=== PATIENT | female | born 1945 | race Caucasian/White ===

== ENCOUNTER 2017-02-13 18:06 | Observation (INO) | payer BC ==
[~2017-02-13] VITALS: Ht 160 cm; Wt 63.9 kg
--- OUTSIDE RECORDS SUMMARY | 2017-02-13 18:14 | XMS REPORT | Continuity of Care Document ---
Author Author [facility] Address Unknown Phone Unavailable Allergies Active Description Code Type Severity Reaction Onset Reported/Identified Relationship to Patient Clinical Status Yes pseudoephedrine [id number] Drug Allergy Unknown N/A 05/28/2014 Medications Problems Date Dx Coded Attending Type Code Diagnosis Diagnosed By 05/29/2014 HENOK CHOW MD Ot 211.3 BENIGN NEOPLASM LG BOWEL 05/29/2014 HENOK CHOW MD Ot 211.4 BENIGN NEOPL RECTUM/ANUS 05/29/2014 HENOK CHOW MD Ot 272.4 HYPERLIPIDEMIA NEC/NOS 05/29/2014 HENOK CHOW MD Ot V16.0 FAMILY HX-GI MALIGNANCY 05/29/2014 HENOK CHOW MD Ot V16.3 FAMILY HX-BREAST MALIG 05/29/2014 HENOK CHOW MD Ot V76.51 SCREEN MAL NEOP-COLON 04/01/2015 ANNA SZYMANSKI MD Ot 733.90 04/01/2015 ANNA SZYMANSKI MD Ot V16.3 04/01/2015 ANNA SZYMANSKI MD Ot V49.81 04/01/2015 ANNA SZYMANSKI MD Ot V76.12 04/05/2015 ANNA SZYMANSKI MD Ot 272.1 04/05/2015 ANNA SZYMANSKI MD Ot 272.4 04/05/2015 ANNA SZYMANSKI MD Ot 477.9 04/05/2015 ANNA SZYMANSKI MD Ot V70.0 04/15/2015 ANNA SZYMANSKI MD Ot 733.90 04/15/2015 ANNA SZYMANSKI MD Ot V16.3 04/15/2015 ANNA SZYMANSKI MD Ot V49.81 04/15/2015 ANNA SZYMANSKI MD Ot V76.12 07/14/2015 ANNA SZYMANSKI MD Ot 599.0 07/21/2015 ANNA SZYMANSKI MD Ot 599.0 04/20/2016 ANNA SZYMANSKI MD Ot E78.5 HYPERLIPIDEMIA, UNSPECIFIED 04/20/2016 ANNA SZYMANSKI MD Ot G25.81 RESTLESS LEGS SYNDROME 04/20/2016 ANNA SZYMANSKI MD Ot J30.9 ALLERGIC RHINITIS, UNSPECIFIED 04/20/2016 ANNA SZYMANSKI MD Ot Z00.00 ENCNTR FOR GENERAL ADULT MEDICAL EXAM W 04/20/2016 ANNA SZYMANSKI MD Ot Z13.6 ENCOUNTER FOR SCREENING FOR CARDIOVASCUL 04/22/2016 ANNA SZYMANSKI MD Ot E78.5 HYPERLIPIDEMIA, UNSPECIFIED 04/22/2016 ANNA SZYMANSKI MD Ot G25.81 RESTLESS LEGS SYNDROME 04/22/2016 ANNA SZYMANSKI MD Ot J30.9 ALLERGIC RHINITIS, UNSPECIFIED 04/22/2016 ANNA SZYMANSKI MD Ot Z00.00 ENCNTR FOR GENERAL ADULT MEDICAL EXAM W 04/22/2016 ANNA SZYMANSKI MD Ot Z13.6 ENCOUNTER FOR SCREENING FOR CARDIOVASCUL 05/16/2016 ANNA SZYMANSKI MD Ot E78.5 HYPERLIPIDEMIA, UNSPECIFIED 05/16/2016 ANNA SZYMANSKI MD Ot G25.81 RESTLESS LEGS SYNDROME 05/16/2016 ANNA SZYMANSKI MD Ot J30.9 ALLERGIC RHINITIS, UNSPECIFIED 05/16/2016 ANNA SZYMANSKI MD Ot Z00.00 ENCNTR FOR GENERAL ADULT MEDICAL EXAM W 05/16/2016 ANNA SZYMANSKI MD Ot Z13.6 ENCOUNTER FOR SCREENING FOR CARDIOVASCUL 10/04/2016 Joleen Burns SR[employer] Ot N30.00 ACUTE CYSTITIS WITHOUT HEMATURIA 10/11/2016 Joleen Burns SR[employer]NER Ot N30.00 ACUTE CYSTITIS WITHOUT HEMATURIA 11/02/2016 Joleen Burns SR[employer] Ot N30.00 ACUTE CYSTITIS WITHOUT HEMATURIA 11/02/2016 Ot 272.4 HYPERLIPIDEMIA NEC/NOS 11/02/2016 Ot 427.9 CARDIAC DYSRHYTHMIA NOS 11/02/2016 Ot 562.10 DIVERTICULOSIS COLON (W/O MENT OF HEMORR 11/02/2016 Ot 733.90 BONE CARTILAGE DIS NOS 11/02/2016 Ot V76.12 OTH SCREEN MAMMO-MALIGN NEOPLASM OF CHARMAINE 11/02/2016 YazRobin hernández Ot 722.4 CERVICAL DISC DEGEN 11/02/2016 ANNA SZYMANSKI MD Ot 272.1 PURE HYPERGLYCERIDEMIA 11/02/2016 ANNA SZYMANSKI MD Ot 272.4 HYPERLIPIDEMIA NEC/NOS 11/02/2016 ANNA SZYMANSKI MD Ot 477.9 ALLERGIC RHINITIS NOS 11/02/2016 ANNA SZYMANSKI MD Ot V70.0 ROUTINE MEDICAL EXAM 11/02/2016 ANNA SZYMANSKI MD Ot 733.90 BONE CARTILAGE DIS NOS 11/02/2016 ANNA SZYMANSKI MD Ot V16.3 FAMILY HX-BREAST MALIG 11/02/2016 ANNA SZYMANSKI MD Ot V49.81 ASYMPT POSTMENOPAUSAL STATUS (AGE- RELATE 11/02/2016 ANNA SZYMANSKI MD Ot V76.12 OTH SCREEN MAMMO-MALIGN NEOPLASM OF CHARMAINE 11/02/2016 ANNA SZYMANSKI MD Ot 599.0 URIN TRACT INFECTION NOS 11/02/2016 ANNA SZYMANSKI MD Ot E78.5 HYPERLIPIDEMIA, UNSPECIFIED 11/02/2016 ANNA SZYMANSKI MD Ot G25.81 RESTLESS LEGS SYNDROME 11/02/2016 ANNA SZYMANSKI MD Ot J30.9 ALLERGIC RHINITIS, UNSPECIFIED 11/02/2016 ANNA SZYMANSKI MD Ot Z00.00 ENCNTR FOR GENERAL ADULT MEDICAL EXAM W / 11/02/2016 ANNA SZYMANSKI MD Ot Z13.6 ENCOUNTER FOR SCREENING FOR CARDIOVASCUL 11/02/2016 Joleen Burns APRN Ot N30.00 ACUTE CYSTITIS WITHOUT HEMATURIA Procedures Code Description Performed By Performed On 45.42 ENDOSC POLYPECTOMY OF LG INTEST 05/29/2014 48.36 ENDO RECTUM POLYPECTOMY 05/29/2014 Results Encounters ACCT No. Visit Date/Time Discharge Status Pt. Type Provider Facility Loc./Unit Complaint [id number] 06/28/2015 11:13:00 2014 23:59:59 CLS Outpatient ANNA SZYMNASKI MD [facility] LAB LAB DROP OFF FROM CLAS OFFICE [id number] 03/30/2015 08:11:00 2014 23:59:59 CLS Outpatient NESSA HAMILTON, [facility] RAD SCREENING V7612,V49.81 POST MENOPAUSAL [id number] 03/22/2015 08:51:00 2014 23:59:59 CLS Outpatient NESSA HAMILTON, [facility] LAB [id number] 07/05/2014 19:09:00 2013 23:59:59 CLS Outpatient Robin Mukherjee [facility] RAD [id number] 05/29/2014 08:26:00 2013 12:20:00 DIS Outpatient GERALDO HAMILTON, [facility] ASC COLONOSCOPY [id number] 02/13/2017 18:07:00 ACT Inpatient JUNI JASMINE [facility] MED/SURG ABD PAIN [id number] 09/30/2016 10:29:00 ACT Outpatient Joleen Burns APRN [facility] [id number] 04/05/2016 08:21:00 ACT Outpatient NESSA HAMILTON, [facility] LAB [id number] 12/25/2012 14:20:00 Document Registration [id number] 12/05/2012 08:37:00 Document Registration
--- OUTSIDE RECORDS SUMMARY | 2017-02-13 18:15 | XMS REPORT ---
Author Author Abdoul Ruiz S Organization Unknown Address [address] [place] [phone] Phone Care Team Providers Care Ec Teacher Name Role Phone Sara Chelsea PP Unavailable Reason for Referral No Reason for Referral was given. History of Present Illness No HPI available. Problems Normal Routine History And Physical Senior Citizen (65-80) (V70.0); ( Active) Folliculitis (704.8); (Active) Lentigo (709.09); ( Active) Seborrheic Keratosis (702.19); (Active) Medication Clobetasol Propionate 0.05 % External Solution; APPLY TO SCALP AT BEDTIME AND WASH OUT IN MORNING FOR ONE WEEK AND THEN ONCE A WEEK THEREAFTER; Start Date: ; End Date: (Active) Allergies and Adverse Reactions No Known Drug Allergies (Active) Past Medical History No Significant Medical History Social History Unknown If Ever Smoked (Active) Advance Directives No Advance Directives available. Encounters Appointment 03/12/2013
[2017-02-13 18:28] VITALS: BP 143/60
[2017-02-13] MEDS ORDERED: MAGNESIUM HYDROXIDE 80MG/ML (MILK OF MAGNESIA) 30 ML UDC PO PRN (18:50)
[2017-02-13] MEDS ORDERED: CALCIUM CARBONATE CHEWABLE 300 MG (TUMS) TABLET PO PRN (18:50)
[2017-02-13] MEDS ORDERED: SENNOSIDES/DOCUSATE 8.6MG/50MG (SENOKOT S) TABLET PO PRN (18:50)
[2017-02-13] MEDS ORDERED: morphine INJ 4 MG/ML 1 ML SYRINGE IV PRN (18:50)
[2017-02-13] MEDS ORDERED: ONDANSETRON 2 MG/ML (Z0FRAN) 2 ML VIAL IV PRN (18:50)
--- NOTE | 2017-02-13 19:12 | History and Physical (E) ---
History & Physical Admission Details Admit Date/Time February 13, 2017 at 18:07 Primary Care Provider Nii Pan MD Subjective CC indigestion and variable fleeting abdominal pain . History of Present Illness 71 yo presents with abdominal discomfort that began followin a fatty meal at the [employer] last p.m. but she admits to similar discomfort assoc. with food for the past two plus months. The pain is about LLQ and RUQand once to jaw on the right side. She tried some antacid last noc but no help. she has history of diverticular dx but says she eats as advised avoiding seed foods. PMH past medical history non contributory. PSH DONNA/BSO for benign disease. FH mother colon cancer. works as sec. denies drinking alcohol or use of tobacco. Allergies: Coded Allergies: pseudoephedrine (Unverified Allergy, Unknown, 05/28/14) Review of Systems CONSTITUTION: HEENT: No change in vision or hearing. No sores in mouth, sore throat. CV: No chest pain, palpitations. PULM: No cough, shortness of breath, difficulty breathing. GI: No nausea, vomiting, constipation, or diarrhea. No blood in stool. : No dysuria. No blood in urine. MS: No new muscle or joint aches and pains. NEURO: No numbness or tingling. No weakness. Lightheadedness per the HPI. INTEG: No rashes, lesions, or sores. ENDO: No heat or cold intolerance. No polydipsia or polyuria. HEME/LYMPH: No easy bruising or bleeding. No swollen glands. PSYCH: No change in mood or behavior. Objective Vital Signs Date Time Temp Pulse Resp B/P Pulse Ox O2 Delivery O2 Flow Rate FiO2 02/13/17 18:28 97.9 86 20 91 Room air Physical Exam Physical Exam General--Awake and alert. No distress. HEENT--Normocephalic. MMM in oral cavity. Lungs--Clear to auscultation bilaterally. Nonlabored respirations. Heart--RRR. No murmurs. Abdomen--Normal bowel sounds. Soft. Nondistended. tender over RUQ and percussion over right renal area. Extremities--No edema. pending labs. Imaging u/s ordered for a.m. as patient is stable . Assessment/Plan abdominal pain in 71 y/o mildly obese female with cc. of "gas" discomfort and pain of 5-7 intensity full labs and amylase and lipase ordered and esr and npo with sips of water only and ms for pain . currently stable. too follow. FLUIDS iv fluids n/s thru noc. ELECTROLYTES pending Diet- npo sips of water Code Status-full DVT prophylaxis-scd Disposition-observation. End of Report . LAVINIA ALFREDO DO February 13, 2017 19:12
[2017-02-13] MEDS ORDERED: SODIUM CHLORIDE FLUSH 10 ML ONE (19:29)
--- NOTE | 2017-02-13 19:57 | NUR ---
Patient resting in bed with sister present at bedside. 20g IV started to Left forearm on first attempt, patient tolerates well. NS@75mL/hr started per order. Reports pain tolerable at this time; educated on PRN medications available for symptom management. Orders for lab and radiology in AM explained to patient, patient in agreement with plan. No needs at this time. Will continue to monitor.
[2017-02-13] MEDS ORDERED: TEMAZEPAM 15 MG (RESTORIL) CAP PO SCH (21:00)
[2017-02-14 00:08] VITALS: BP 164/86
--- NOTE | 2017-02-14 06:36 | NUR ---
Patient has reported no pain this shift. States that she slept well after administration of the Restoril. IV infusing without difficulties. Patient reports "mild headache" this AM and encouraged to tell staff if it gets worse or if she would like Tylenol for this. No needs at this time.
[2017-02-14 06:56] LABS: BASOPHILS % (AUTO) 1 % (0-2); EOSINOPHILS # (AUTO) 0.2 10^3uL; EOSINOPHILS % (AUTO) 5 % (0-4); LYMPHOCYTES # (AUTO) 1.6 X10^3; MEAN CORPUSCULAR HEMOGLOBIN 29.8 PG (26.0-34.0); MEAN CORPUSCULAR HGB CONC 33.4 g/dL (31.0-37.0); MEAN CORPUSCULAR VOLUME 89 FL (80-100); MEAN PLATELET VOLUME 9.7 FL (6.0-9.5); MONOCYTES # (AUTO) 0.4 X10^3; MONOCYTES % (AUTO) 10 % (3-11); NEUTROPHILS # (AUTO) 1.9 X10^3; NEUTROPHILS % (AUTO) 46 % (51-67); PLATELET COUNT 175 10^3uL (150-450); WHITE BLOOD COUNT 4.16 10^3uL (4.0-11.0)
[2017-02-14 07:07] LABS: ALBUMIN 3.5 g/dL (3.4-5.0); ALKALINE PHOSPHATASE 54 U/L (38-126); AMYLASE* 81 U/L (25-115); ANION GAP 9.4 MEQ/L (3-15); BUN/CREATININE RATIO 19 (10-20); CALCULATED IONIZED CALCIUM 4.2 mg/dL (3.8-4.6); LIPASE* 76 U/L (23-300); TOTAL PROTEIN 6.4 g/dL (6.4-8.5)
[2017-02-14 07:33] VITALS: BP 127/69
--- NOTE | 2017-02-14 07:34 | Diagnostic Imaging Report ---
INDICATION: Chest and abdominal pain. FINDINGS: Frontal and lateral views of the chest demonstrate surgical clips along the left anterior lateral chest wall. Lungs are clear. Heart, mediastinum, pulmonary vascularity are normal. IMPRESSION: Negative chest. Dictated by: Dictated on workstation # [id number]
--- NOTE | 2017-02-14 09:25 | Diagnostic Imaging Report ---
PROCEDURE: US abdomen complete. TECHNIQUE: Multiple real-time grayscale images were obtained over the abdomen in various projections. INDICATION: Right upper quadrant pain and postprandial pain. COMPARISON: None available. FINDINGS: The liver is normal in size. It demonstrates mild diffuse increased echogenicity, suggestive of mild hepatic steatosis. No focal hepatic lesion. The main portal vein is patent with antegrade flow. The gallbladder is distended without gallstones, pericholecystic fluid, or gallbladder wall thickening. The common bile duct is borderline dilated measuring 0.6 cm. There is a focal ovoid echogenic focus in the proximal common bile duct measuring approximately 6 mm which could represent an intraductal stone. The visualized portions of the pancreas are normal. Portions of the head and tail are obscured by overlying bowel gas. The kidneys are normal in size, each measuring approximately 10 cm. No hydronephrosis or suspicious mass lesion of either kidney. The aorta and IVC are normal in caliber where visualized. No ascites in the visualized abdomen. IMPRESSION: 1. Borderline dilation of the common bile duct measuring 6 mm. An echogenic 6 mm focus within the proximal common bile duct may represent choledocholithiasis. No intrahepatic biliary duct dilatation to indicate a high-grade obstructing stone. 2. No gallstones or findings to suggest acute cholecystitis. 3. Mild diffuse hepatic steatosis. Dictated by: Dictated on workstation # [id number]
[2017-02-14] MEDS ORDERED: ACETAMINOPHEN 325 MG TAB (TYLENOL) PO PRN (09:30)
[2017-02-14] MEDS ORDERED: ACETAMINOPHEN 325 MG TAB (TYLENOL) ONE (09:30)
--- NOTE | 2017-02-14 09:32 | Progress Note (E) ---
Progress Note S: Awake and alert No abdominal pain, no fevers or vomiting, mild ORONA this am from not eating Abdominal US being done now- prelim suggests possible CBD O: Vital Signs Date Time Temp Pulse Resp B/P Pulse Ox O2 Delivery O2 Flow Rate FiO2 02/14/17 07:33 97.9 74 18 127/69 100 Room air I & O Past 24 hrs 02/14/17 07:00 Intake Total 677 ml Output Total 1200 ml Balance -523 ml Intake IV Total 677 ml Output Urine Total 1200 ml Current Medications Sodium Chloride 1,000 ml @ 75 mls/hr [id number] IV Last administered on 02/14/17 08:50; Admin Dose 75 MLS/HR; Start 02/13/17 at 18:48 Morphine Sulfate 1 mg PRN PRN IV; Start 02/13/17 at 18:50 Calcium Carbonate 300 mg Q8H PRN PO; Start 02/13/17 at 18:50 Ondansetron HCl 4 mg Q6H PRN IV; Start 02/13/17 at 18:50 Magnesium Hydroxide 30 ml DAILY PRN PO; Start 02/13/17 at 18:50 Temazepam 15 mg HS PO Last administered on 02/13/17 21:35 EXAM: Alert and oriented x 3 HEENT- PERRLA EOMI Neck supple Lungs clear bilaterally CV: S1S2 Abdomen soft mildly tender with deep palpation Ext: No cyanosis Neuro: No focal neuro deficits Ultrasound- CBD measures 0.6mm No obstruction seen Laboratory Results Past 48 Hrs 02/14/17 00:57: Troponin I < 0.012 02/14/17 06:35: Troponin I < 0.012, Alanine Aminotransferase (ALT/SGPT) 21L, Albumin 3.5, Albumin/Globulin Ratio 1.206, Alkaline Phosphatase 54, Amylase Level 81, Anion Gap 9.4, Aspartate Amino Transf (AST/SGOT) 20, BUN/Creatinine Ratio 19, Basophils # (Auto) 0.0, Basophils (%) (Auto) 1, Blood Urea Nitrogen 16, C- Reactive Protein < 0.50, Calcium Level 8.9, Calcium/Ionized Calcium Ratio 4.2, Calculated Osmolality 276L, Carbon Dioxide Level 29, Chloride Level 109H, Creatinine 0.84, Eosinophils # (Auto) 0.2, Eosinophils (%) (Auto) 5H, Estimat Glomerular Filtration Rate 81.1, Estimated GFR (Non- 67.0, Glucose Level 93, Hematocrit 39.80, Hemoglobin 13.3, Lipase 76, Lymphocytes # ( Auto) 1.6, Lymphocytes (%) (Auto) 38, Mean Corpuscular Hemoglobin 29.8, Mean Corpuscular Hemoglobin Concent 33.4, Mean Corpuscular Volume 89, Mean Platelet Volume 9.7H, Monocytes # (Auto) 0.4, Monocytes (%) (Auto) 10, Neutrophils # ( Auto) 1.9, Neutrophils (%) (Auto) 46L, Platelet Count 175, Potassium Level 4.4, Red Blood Count 4.47, Red Cell Distribution Width 12.3, Sodium Level 142, Total Bilirubin 0.8, Total Protein 6.4, White Blood Count 4.16 ASSESSMENT/PLAN: Acute abdominal pain suspicious for gallbladder dysfunction- awaiting US this am Continue IV Fluids and Pain control, May need surgical consult? ERCP? Called Dr Andrez SANTANA in [place] to discuss plan for possible ERCP- TOMER RODAS called - wants documents faxed to her at [phone] Castellon will talk with Dr Mccoy- He can see her next week. SHe can go home- eat very light and they will call her for appt. SHe agrees to plan of care. She wants to go home due to upcoming graduations . If pain persists- go to [place] . SHe agrees - spoke to daughter Sarita who is an RN Joleen Burns APRN February 14, 2017 09:32
[2017-02-14] MEDS ORDERED: NS FLUSH 3 ML PRN IV (09:35)
[2017-02-14] MEDS ORDERED: NS FLUSH 10 ML PRN IV (09:35)
--- NOTE | 2017-02-14 10:35 | NUR ---
NUTRITION ASSESSMENT Level 1 Patient: Adriana Del Castillo Age/Sex: 71/F Date Screened: 02-14-17 Weight: 140.5#/63.9 kg Height: 63 inches Primary Diagnosis: abdominal pain Diet Order: NPO Relevant labs: glucose 93 Food allergies: N Nutrition Assessment Criteria Age over 80: N Body Mass Index (BMI) under 19: N Admission Screening Indicates Risk? N Moderate/High Risk Diagnosis: 3 points TPN or PPN: N NPO or clear liquid diet: Yes Serum Glucose <70 or >180: N Hgb A1c >6.7: N/A Total: 3 points Risk Screen: __ Patient at low nutritional risk based on available data; reevaluate in 5-7 days _X_ Patient at moderate nutritional risk based on available data; reevaluate in 3-5 days __ Patient at high nutritional risk; complete Nutrition Assessment within 48 hours of admission. Comments: No n/v/d, no known weight loss. Pt. reports mild abdominal discomfort after fatty meals for the past couple of months. She also has diverticulosis but avoids trigger foods for her. Medical workup suspicious for gallbladder; will reassess as documented above.
--- NOTE | 2017-02-14 11:30 | Discharge Instructions (E) ---
Discharge Instructions Instructions Dr Castellon office to call you for appt Be careful with your diet Any recurrent pain contact Dr Castellon Senior Engineering Associate- Janette Activity Instructions as tolerates Doctor's Appointment Appt Dr Castellon GI- They will call you for appt Discharge Diet: Soft (bland, non greasy ) Joleen Burns APRN February 14, 2017 11:29
--- NOTE | 2017-02-14 11:39 | Discharge Summary (E FT) ---
Discharge Summary (E FT) Admit Date February 13, 2017 at 18:48 Discharge Date February 14, 2017 Admitting Provider Manpreet Alfredo DO Primary Care Provider Nii Pan MD Attending Provider Manpreet Alfredo DO Consulting Provider Hospital Course Summary CC indigestion and variable fleeting abdominal pain . History of Present Illness 71 yo presents with abdominal discomfort that began followin a fatty meal at the [employer] last p.m. but she admits to similar discomfort assoc. with food for the past two plus months. The pain is about LLQ and RUQ and once to jaw on the right side. She tried some antacid last noc but no help. she has history of diverticular dx but says she eats as advised avoiding seed foods. Over night she did well, no pain no vomiting. US this am shows a 6mm CBD stone. She feels good and wants to go home- discussed all risks and benefits, Spoke to Dr Andrez SANTANA by phone- he agrees to see her next week and possible ERCP- paper faxed to their office today. She agrees to plan of care. Vital Signs Date Time Temp Pulse Resp B/P Pulse Ox O2 Delivery O2 Flow Rate FiO2 02/14/17 07:33 97.9 74 18 127/69 100 Room air I & O Past 24 hrs 02/14/17 07:00 Intake Total 677 ml Output Total 1200 ml Balance -523 ml Intake IV Total 677 ml Output Urine Total 1200 ml Objective Vital Signs Date Time Temp Pulse Resp B/P Pulse Ox O2 Delivery O2 Flow Rate FiO2 02/13/17 18:28 97.9 86 20 91 Room air Physical Exam General--Awake and alert. No distress. HEENT--Normocephalic. MMM in oral cavity. Lungs--Clear to auscultation bilaterally. Nonlabored respirations. Heart--RRR. No murmurs. Abdomen--Normal bowel sounds. Soft. Nondistended. tender over RUQ and percussion over right renal area. Extremities--No edema. pending labs. Imaging u/s ordered for a.m. as patient is stable . Assessment/Plan abdominal pain in 71 y/o mildly obese female with cc. of "gas" discomfort and pain- She has a 6mm CBD stone- will be seen by GI in [place] She tolerated a bland diet and was dc home today- told if pain occurs again go to [facility]. Juju RN has all her paper work. Spoke with her daughter. Adriana wants to go home and go to graduations. Takes no meds- Tylenol prn Discharge Disposition Home with family [place] low fat diet Discontinued Medications: Ciprofloxacin HCl (Cipro) 500 Mg Tablet 500 MG PO BID Infection #10 Ref 0 TAB Nitrofurantoin Monohyd/M-Cryst (Macrobid 100 mg Capsule) 100 Mg Capsule 100 MG PO BID Infection #14 Ref 0 CAP Phenazopyridine HCl (Pyridium) 200 Mg Tablet 200 MG PO TID Dysuria #6 Ref 0 TAB Sulfamethoxazole/Trimethoprim (Sulfamethoxazole/Trimethoprim DS 800mg/160mg) 1 Each Tablet 1 EACH PO BID #10 TAB Follow up Instructions Dr Castellon office to call you for appt Be careful with your diet Any recurrent pain contact Dr Castellon Technical Mgr- Janette Copies to: End of Report . Joleen Burns APRN February 14, 2017 11:39 MANPREET ALFREDO DO February 14, 2017 16:10
--- NOTE | 2017-02-14 13:00 | NUR ---
Patient was able to eat clear liquids for lunch without difficulty. She has not needed any pain medication for this shift.
--- NOTE | 2017-02-14 13:15 | NUR ---
Gave the patient discharge instructions. Informed her no new scripts were issued for this visit. EDucated her on the importance of follow up with Dr. Castellon in [place] and that they would call for her appt. Patient demonstrated verbal understanding of the instructions.
--- NOTE | 2017-02-14 13:40 | NUR ---
Patient dismissed ambulatory accompanied by a SEED LABORATORY ASSISTANT.
[2017-02-15] MEDS ORDERED: NS FLUSH 3 ML DAILY IV SCH (09:00)
== END 2017-02-14 13:40 | disposition home or self-care (01) ==
LOC: MED/SURG 18:07 → UNDOADMIN 18:07 → MED/SURG 18:48 → INTOOBSV 18:48
DX: K80.50 Calculus of bile duct without cholangitis or cholecystitis without obstruction (principal); E66.9 Obesity, unspecified; Z68.25 Body mass index [BMI] 25.0-25.9, adult
CPT/HCPCS: 36415; 71020; 76700; 80053; 82150; 83690; 84484; 85025; 86140; J7030; 96360; 96361; 99218

== ENCOUNTER → 2017-02-13 | Outpatient (REF) | payer BC ==
[~2017-02-13] MED LIST: CPR500T PO; NITR100C3 PO; PHEN-640 PO; SULF-221 PO
== END ==
LOC: LAB 18:17
PROVIDERS: ATTEND Internal Medicine
DX: R10.2 Pelvic and perineal pain (principal); M54.5 Low back pain
CPT/HCPCS: 87088